=== PATIENT | male | born 1970 | race Caucasian/White ===

== ENCOUNTER 2020-02-28 13:31 | Emergency (ER) | payer OTHER ==
[~2020-02-28] VITALS: Ht 188 cm; Wt 148.8 kg
[2020-02-28] MEDS ORDERED: cefTRIAXone 1 GM in NS 55 ML IVPB ONE (14:00)
--- NOTE | 2020-02-28 14:30 | NUR ---
ED Nurse Note: pt with iv and labs drawn and sent. pt tolerates well. no dyspnea. bilateral pedal edema noted.
[2020-02-28 14:43] LABS: HEMATOCRIT 41.6 % (42.0-52.0); HEMOGLOBIN 12.9 G/DL (14.2-18.0); MEAN CORPUSCULAR VOLUME 90 FL (80-99); PLATELET COUNT 70 K/UL (150-450); RED BLOOD COUNT 4.61 M/UL (4.70-6.10); RED CELL DISTRIBUTION WIDTH 16.4 % (11.6-14.8); WHITE BLOOD COUNT 4.4 K/UL (4.8-10.8)
[2020-02-28 14:59] LABS: ANION GAP 7 mmol/L (5-15); BLOOD UREA NITROGEN 13 mg/dL (7-18); CALCIUM 7.9 MG/DL (8.5-10.1); CARBON DIOXIDE 27 MMOL/L (21-32); CHLORIDE 108 MMOL/L (98-107); CREATININE 0.8 MG/DL (0.55-1.30); POTASSIUM 3.5 MMOL/L (3.5-5.1); SODIUM 142 MMOL/L (136-145)
--- NOTE | 2020-02-28 15:06 | NUR ---
ED Nurse Note: pt amb steady gait to brp. urine sent as order.
[2020-02-28 15:12] LABS: ALANINE AMINOTRANSFERASE 113 U/L (12-78); ALKALINE PHOSPHATASE 181 U/L (46-116); ASPARTATE AMINO TRANSFERASE 129 U/L (15-37); BILIRUBIN,TOTAL 0.8 MG/DL (0.2-1.0)
[2020-02-28 15:17] LABS: APPEARANCE,URINE CLEAR; BILIRUBIN, URINE NEGATIVE (NEGATIVE); COLOR,URINE PALE YELLOW; GLUCOSE, URINE (UA) NEGATIVE (NEGATIVE); KETONES,URINE NEGATIVE (NEGATIVE); LEUKOCYTE ESTERASE ,URINE NEGATIVE (NEGATIVE); NITRITE,URINE NEGATIVE (NEGATIVE); PH,URINE 7 (4.5-8.0); PROTEIN,URINE NEGATIVE (NEGATIVE); UROBILINOGEN,URINE NORMAL MG/DL (0.0-1.0)
--- NOTE | 2020-02-28 15:31 | NUR ---
ED Nurse Note: pcxr being done.
[2020-02-28] MEDS ORDERED: CEPHALEXIN500 MG ORAL (16:02)
[2020-02-28] MEDS ORDERED: IBUPROFEN600 M1 ORAL (16:02)
--- NOTE | 2020-02-28 16:02 | Emergency Room Report ---
History of Present Illness General Chief Complaint: Edema Source: Patient Present Illness HPI 50-year-old male with history of tobacco smoke as well as hepatitis however unsure which currently who is a Ethiopian-speaking only here complaining of bilateral lower extremity edema and pain for several months. Patient reports that he first went to his primary doctor across the street earlier today and was told to come here. Edema is noted on bilateral lower extremity with obvious cellulitis and warm to touch. Pitting edema noted. Denies any tingling numbness, denies calf tenderness, chest pain shortness of breath. Reports that the edema was worse several weeks ago and has been subsiding. Denies chest pain, shortness of breath, headache and dizziness. Has not taken medication for symptom relief. Reports that he smokes tobacco on daily basis. Denies drug use and alcohol intake. Allergies: Coded Allergies: No Known Allergies (Unverified , 02/28/20) COVID-19 Screening Contact w/high risk pt: No Recent Travel to affected area: No Experienced COVID-19 symptoms?: No COVID-19 Testing performed MICROECONOMICS PROFESSOR: No Patient History Past Medical History: see triage record Past Surgical History: none Pertinent Family History: none Social History: Reports: smoking Immunizations: UTD Reviewed Nursing Documentation: PMH: Agreed; PSxH: Agreed Nursing Documentation-PMH Past Medical History: No History, Except For Hx Cardiac Problems: No - hepatitis Review of Systems All Other Systems: negative except mentioned in HPI Physical Exam Vital Signs Date Time Temp Pulse Resp B/P (MAP) Pulse Ox O2 Delivery O2 Flow Rate FiO2 02/28/20 13:43 97.5 90 18 122/74 (90) 97 Room Air Sp02 EP Interpretation: reviewed, normal General Appearance: no apparent distress, alert, GCS 15, non-toxic Head: normocephalic, atraumatic Eyes: bilateral eye normal inspection, bilateral eye PERRL ENT: hearing grossly normal, normal pharynx, no angioedema, normal voice Neck: full range of motion, supple Respiratory: chest non-tender, lungs clear, normal breath sounds, no rhonchi, no retraction, speaking full sentences Cardiovascular #1: no edema, no gallop, no murmur Cardiovascular #2: 2+ dorsalis pedis (R), 2+ dorsalis pedis (L) Gastrointestinal: normal bowel sounds, non tender, soft, non-distended, no guarding, no rebound Rectal: deferred Genitourinary: no CVA tenderness Musculoskeletal: back normal, no calf tenderness, swelling - Bilateral lower extremity and feet with cellulitis noted Neurologic: alert, motor strength/tone normal, oriented x3, sensory intact, responsive, speech normal Psychiatric: judgement/insight normal, memory normal, mood/affect normal, no suicidal/homicidal ideation Reflexes: 2+ bicep (R), 2+ bicep (L), 2+ tricep (R), 2+ tricep (L), 2+ knee (R) , 2+ knee (L), 2+ ankle (R), 2+ ankle (L) Skin: no rash, other - Cellulitis both lower extremities Lymphatic: no adenopathy Medical Decision Making PA Attestation All diagnoses and treatment plans were reviewed and discussed with my supervising physician Dr. Washington Diagnostic Impression: Primary Impression: Cellulitis of lower leg Additional Impressions: Lower leg edema Fatty liver ER Course 50-year-old male with history of tobacco smoke as well as hepatitis however unsure which currently who is a Ethiopian-speaking only here complaining of bilateral lower extremity edema and pain for several months. Patient reports that he first went to his primary doctor across the street earlier today and was told to come here. Edema is noted on bilateral lower extremity with obvious cellulitis and warm to touch. Pitting edema noted. Denies any tingling numbness, denies calf tenderness, chest pain shortness of breath. Reports that the edema was worse several weeks ago and has been subsiding. Denies chest pain, shortness of breath, headache and dizziness. Has not taken medication for symptom relief. Reports that he smokes tobacco on daily basis. Denies drug use and alcohol intake. Ddx considered but are not limited to : Cellulitis, DVT, superficial infection, abscess Vital signs: are WNL, pt. is afebrile H&PE are most consistent with: Cellulitis of lower leg, cardiomegaly, incidental finding of fatty liver ORDERS:, CBC, CMP, PT and PTT, bilateral lower extremity x-ray, Keflex, Motrin ED INTERVENTIONS: Rocephin, Lasix p.o. DISCHARGE: At this time pt. is stable for d/c to home. Will provide printed patient care instructions, and any necessary prescriptions. Care plan and follow up instructions have been discussed with the patient prior to discharge. Patient to follow primary doctor as bilateral lower extremity edema and cellulitis secondary to cardiomegaly. At this time no further evaluation needed and no venous duplex ultrasound needed patient has been dealing with this for several months and no acute findings noted. If worsening symptoms return to the emergency room Chest X-Ray Diagnostic Results Chest X-Ray Diagnostic Results : Chest X-Ray Ordered: Yes # of Views/Limited/Complete: 1 View Indication: Other EP Interpretation: Yes PA Xray: Interpretation reviewed, by supervising MD, and agrees with findings. Interpretation: no consolidation, no effusion, no pneumothorax Impression: No acute disease Electronically Signed by: Magaly Mckeon PA-C Other X-Ray Diagnostic Results Other X-Ray Diagnostic Results #1: X-Ray ordered: Right tib-fib # of Views/Limited Vs Complete: 2 View Indication: Swelling EP Interpretation: Yes PA Xray: Interpretation reviewed, by supervising MD, and agrees with findings. Interpretation: no dislocation, no soft tissue swelling, no fractures Impression: No acute disease Electronically Signed by: Magaly Mckeon PA-C Other X-Ray Diagnostic Results #2: X-Ray ordered: Left tib-fib # of Views/Limited Vs Complete: 2 View Indication: Swelling EP Interpretation: Yes PA Xray: Interpretation reviewed, by supervising MD, and agrees with findings. Interpretation: no dislocation, no soft tissue swelling, no fractures Impression: No acute disease Electronically Signed by: Magaly Mckeon PA-C Other X-Ray Diagnostic Results #3: X-Ray ordered: Right foot # of Views/Limited Vs Complete: 2 View Indication: Swelling EP Interpretation: Yes PA Xray: Interpretation reviewed, by supervising MD, and agrees with findings. Interpretation: no dislocation, no soft tissue swelling, no fractures Impression: No acute disease Electronically Signed by: Magaly Mckeon PA-C Other X-Ray Diagnostic Results #4: X-Ray ordered: Left foot # of Views/Limited Vs Complete: 2 View Indication: Swelling EP Interpretation: Yes PA Xray: Interpretation reviewed, by supervising MD, and agrees with findings. Interpretation: no dislocation, no soft tissue swelling, no fractures Impression: No acute disease Electronically Signed by: Magaly Mckeon PA-C Last Vital Signs Date Time Temp Pulse Resp B/P (MAP) Pulse Ox O2 Delivery O2 Flow Rate FiO2 02/28/20 14:27 90 18 Room Air 6/22/20 13:43 97.5 122/74 (23) 97 Disposition: HOME, SELF-CARE Condition: Stable Scripts Ibuprofen* (MOTRIN*) 600 Mg Tablet 600 MG ORAL Q8H PRN for FOR PAIN, #30 TAB 0 Refills Prov: Magaly Ramirez 02/28/20 Cephalexin* (KEFLEX*) 500 Mg Capsule 500 MG ORAL EVERY 6 HOURS for 7 Days, #28 CAP Prov: Magaly Ramirez 02/28/20 Referrals: NON PHYSICIAN (PCP) Patient Instructions: Cellulitis, [id number], Edema, [id number], Fatty Liver Additional Instructions: Avoid strenuous physical activity, if worsening symptoms return to the emergency room also referral to locomotive inspector may be needed per request of your primary doctor. Magaly Ramirez Feb 28, 2020 16:01
[2020-02-28 16:25] VITALS: BP 125/76
--- NOTE | 2020-02-28 16:25 | NUR ---
ER DISCHARGE NOTE: Patient is cleared to be discharged per ERMD, pt is aox4, on room air, with stable vital signs. pt was given dc and prescription instructions, pt was able to verbalize understanding, pt id band and iv site removed without complications. pt is able to ambulate with steady gait. pt took all belongings.
[2020-02-28 16:26] VITALS: BP 125/76
--- NOTE | 2020-02-28 16:39 | Diagnostic Imaging Report ---
Procedure: XRAY Chest 1v Reason for study: Chest pain Comparison films: None. FINDINGS: A single one view chest is obtained. Vascularity is normal. The lung aleman are clear bilaterally. There is cardiomegaly. CP angles are sharp. The bony thorax appear unremarkable. IMPRESSION: Cardiomegaly. No acute disease.
--- NOTE | 2020-02-28 16:40 | Diagnostic Imaging Report ---
EXAM: X-RAY XRAY Foot 2v R CLINICAL HISTORY: Foot pain. COMPARISON: None FINDINGS: Total of 2 views of the right foot were obtained. Alignment is anatomic. There is no fracture, bony lesions or erosions. Joint spaces are unremarkable. Mild soft tissue swelling noted at the dorsum of the foot. IMPRESSION: OF TISSUE SWELLING. NO FRACTURE NOTED ON THESE 2 VIEWS.
--- NOTE | 2020-02-28 16:41 | Diagnostic Imaging Report ---
EXAM: X-RAY XRAY Foot 2v L CLINICAL HISTORY: Foot pain. COMPARISON: None FINDINGS: Total of 2 views of the left foot were obtained. Frontal view includes the forefoot and midfoot only. Lateral view includes the entire foot. There is no fracture, bony lesions or erosions. Joint spaces are unremarkable. There is slight soft tissue swelling at the dorsum of the foot. IMPRESSION: SOFT TISSUE SWELLING AT THE DORSUM OF THE FOOT. NO ACUTE BONY ABNORMALITY.
--- NOTE | 2020-02-28 16:42 | Diagnostic Imaging Report ---
EXAM: X-RAY XRAY Leg Lower Tib Fib 2v R CLINICAL HISTORY: Leg pain. COMPARISON: None FINDINGS: Total of 2 views of the right tibia and fibula were obtained. Alignment is anatomic. There is no fracture, bony lesions or erosions. Mild degenerative changes noted at the knee. There is mild soft tissue swelling. IMPRESSION: MILD DEGENERATIVE CHANGE AND SOFT TISSUE SWELLING. NO FRACTURE.
--- NOTE | 2020-02-28 16:47 | Diagnostic Imaging Report ---
EXAM: X-RAY XRAY Leg Lower Tib Fib 2v L CLINICAL HISTORY: Leg pain. COMPARISON: None FINDINGS: Total of 2 views of the left tibia and fibula were obtained. Alignment is anatomic. There is no fracture, bony lesions or erosions. Mild degenerative changes of the knee. Surrounding soft tissue is normal. IMPRESSION: NO FRACTURE.
== END 2020-02-28 16:25 | disposition home or self-care (01) ==
LOC: EMR 13:55
DX: L03.116 Cellulitis of left lower limb (principal); L03.115 Cellulitis of right lower limb; R60.0 Localized edema; K76.0 Fatty (change of) liver, not elsewhere classified; F17.200 Nicotine dependence, unspecified, uncomplicated; I51.7 Cardiomegaly; M25.572 Pain in left ankle and joints of left foot; M25.571 Pain in right ankle and joints of right foot
CPT/HCPCS: 36415; 71045; 73590; 73620; 80053; 81003; 83880; 84484; 85007; 85025; 96365; 96375; J0696; J1940; Z7502; 99284